=== PATIENT | female | born 1980 | race Caucasian/White ===

== ENCOUNTER 2024-02-05 17:10 | Emergency (ER) | payer OTHER, SELFPAY ==
[2024-02-05 17:21] VITALS: BP 135/99
--- NOTE | 2024-02-05 17:43 | ED.GENMED ---
History of Present Illness
General
Chief Complaint: Chest Pain
Time Seen by Provider: 02/05/24 17:43
History of Present Illness
History of Present Illness:
TIME OF INITIAL ENCOUNTER: 5:45 PM
HPI: The patient had abrupt onset stabbing central chest discomfort as she points to the lower chest and a small region. There is some questionable shortness of breath as well. She was doing a medicine ball workout earlier today when the symptoms
started. No cough or fevers.
EXAM:
GENERAL: Well appearing in no distress
HEENT: Moist oral mucosa
CARDIOVASCULAR: No murmurs, normal heart rate, regular rhythm, moderate chest wall tenderness to the left sternal border
PULMONARY: No respiratory distress, breath sounds are clear and equal
ABDOMEN: Soft with no peritoneal signs, no tenderness
NEUROLOGIC: Excellent strength all extremities, no coordination deficits
PSYCHIATRIC: Appropriate mental status, normal insight and judgement
EXTREMITIES: Nontender, no edema, moves all extremities equally
SKIN: No rash, no lesions
NUMBER AND COMPLEXITY OF PROBLEMS ADDRESSED AT THE ENCOUNTER
� Chronic conditions affecting care: No significant past medical history
� Acute Exacerbation and/or Progression of Chronic Illness: This is an acute problem
� Differential Diagnosis includes:costochondritis, chest wall pain, PE and ACS very unlikely
AMOUNT AND/OR COMPLEXITY OF DATA TO BE REVIEWED AND ANALYZED
� I performed an independent evaluation of and my interpretation is:
EKG: Sinus 89, septal Q waves with no old EKG to compare, no acute ST abnormality
CT:
X-rays: Chest x-ray negative
Laboratory Studies: CBC, chemistries normal, hCG negative, initial troponin negative, D-dimer low
Other:
� Review of other/old records: No old records available for review
� Clinical information was obtained by an independent historian: I spoke to the at bedside
� Prescriptions/Medications Considered but not given:
� Further testing considered but not performed:
RISK OF COMPLICATIONS AND/OR MORBIDITY OR MORTALITY OF PATIENT MANAGEMENT
� Social determinants of health affecting care: Lives at home
� Discussion with other providers: None needed
� Escalation of care including admission/observation vs risk of discharge considered: Labs including troponins and D-dimer unremarkable. Chest x-ray also unremarkable.
ANY OTHER UPDATES:
7:30 PM�no further pain after Toradol was given. Favor more likely costochondritis.
Phy Exam
Physical Exam
Physical Exam:
See HPI
Scores
Heart Score for Chest Pain Patients
STEMI patient?: No
History: Slightly or Non-Suspicious
ECG: Normal
Age: </= 45 years
Risk Factors: No Risk Factors
Troponin: </= Normal Limit
Heart Score for Chest Pain Patients: 0
Heart Score Risk: 2.5% MACE over next 6 weeks
Course
Orders/Labs/Results
Orders:
Orders
02/05/24 17:11
Electrocardiogram (*1) Urgent
Reason for Study: Chest Pain
EKG- Treatment ONCE
02/05/24 17:14
Test Result ONCE
02/05/24 17:50
Ketorolac [Toradol] 15 mg IV NOW STA
02/05/24 17:57
Complete Blood Count/With Diff Urgent
Comprehensive Metabolic Panel Urgent
D-Dimer Urgent
HCG, Serum Qualitative Screen Urgent
Troponin I Urgent
02/05/24 18:38
CR Chest - 2 Views Urgent
Comment:
Reason For Exam: cp
02/05/24 19:24
Troponin I Urgent
Abnormal Lab Results
02/05/24
17:57
Hct 36.2 L %
(37.0-47.0)
Glucose 103 H mg/dl
(70-99)
AST 38 H U/L
(14-36)
02/05/24 17:57
02/05/24 17:57
Vital Signs
Initial and Last Documented VS:
Initial Vital Signs
Temp Pulse Resp BP Pulse Ox
97.9 F 103 16 135/99 100
02/05/24 17:21 02/05/24 17:21 02/05/24 17:21 02/05/24 17:21 02/05/24 17:21
Last Documented Vital Signs
Temp Pulse Resp BP Pulse Ox
97.9 F 90 18 102/89 99
02/05/24 17:21 02/05/24 19:00 02/05/24 19:00 02/05/24 19:00 02/05/24 19:00
*Critical Care Note
Total Time (30-74mins, 75-104mins- exclusive of procedures): Not Applicable
ED Attending Note
-
Portions of this chart may have been created with voice recognition software.� Occasional wrong word or��sound alike� substitutions may have occurred due to the inherent limitations of voice recognition software.
Discharge Plan
Departure
Patient Disposition: Home (Routine Discharge)
Date of Disposition: 02/05/24
Time of Disposition: 20:03
Patient with high blood pressure during this ER visit?: Yes
Discharge Problem:
Acute costochondritis
Instructions: Chest Pain DCA Follow Up
Referrals:
NONE,* [Family Provider] -
Activity Restrictions/Additional Instructions:
Please follow-up with your primary care doctor. I recommend 3-4 [id number] ibuprofen (Motrin) every 8 hours with food for a few days. Return here if worse.
Interventions
Interventions:
*Risk Screen - Suicide Last Done: 02/05/24 17:21
*General Assessment Last Done: 02/05/24 17:21
*Neglect/Abuse Screening Last Done: 02/05/24 17:21
ED- Fall Risk Assessment Last Done: 02/05/24 17:48
*ED COVID-19 Vaccine History Last Done: 02/05/24 17:21
ED- Cardiac Assessment Last Done: 02/05/24 17:48
Discharge Date and Time
Print Language: YI
[2024-02-05 17:44] VITALS: BMI 27.2
[2024-02-05 18:00] VITALS: BP 108/83
[2024-02-05 18:04] LABS: % Eosinophils 2.3 % (0-6); % Immature Granulocytes 0.4 % (0-0.5); % Monocytes 8.7 % (1.7-9.3); % Neutrophils 54.6 % (42.2-75.2); Absolute Basophils 0.1 10^3/uL (0-0.2); Absolute Eosinophils 0.1 10^3/uL (0-0.7); Absolute Lymphocytes 1.7 10^3/uL (1.2-3.4); Absolute Monocytes 0.5 10^3/uL (0.1-0.6); Absolute Neutrophils 2.8 10^3/uL (1.4-6.5); Hematocrit 36.2 % (37.0-47.0); Hemoglobin 12.6 g/dL (12.0-16.0); Mean Corp Hgb Conc. 34.8 g/dL (33.0-37.0); Mean Corpuscular Hgb 29.8 pg (27.0-31.0); Mean Corpuscular Volume 85.6 fL (81.0-99.0); Mean Platelet Volume 9.4 fL (7.4-10.4); Nucleated Red Blood Cells % 0 %; Platelet Count 346 10^3/uL (130-400); Red Blood Cell Count 4.23 10^6/uL (4.20-5.40); White Blood Cell Count 5.2 10^3/uL (4.8-10.8)
[2024-02-05] MEDS: TORADOL 15 MG IV (18:08)
[2024-02-05 18:23] LABS: D-Dimer < 0.27 ug/mlFEU (0.00-0.50); HCG, Serum Qualitative Screen Negative
[2024-02-05 18:27] LABS: ALT (SGPT) 19 U/L (0-35); AST (SGOT) 38 U/L (14-36); Albumin 4.7 g/dl (3.5-5.0); Alkaline Phosphatase 63 U/L (38-126); Blood Urea Nitrogen 12 mg/dl (7-17); Calcium 9.5 mg/dl (8.4-10.2); Carbon Dioxide 26 mmol/L (22-30); Chloride 101 mmol/L (98-107); Estimated Creatinine Clearance 90 ml/min; Glucose 103 mg/dl (70-99); Potassium 4.7 mmol/L (3.5-5.1); Sodium 141 mmol/L (135-145); Total Bilirubin 0.2 mg/dl (0.2-1.3); Total Protein 7.4 g/dl (6.3-8.2); eGFR > 60.00
[2024-02-05 18:38] LABS: Troponin I < 0.012 ng/ml
[2024-02-05 19:00] VITALS: BP 102/89
[2024-02-05 19:58] LABS: Troponin I < 0.012 ng/ml
== END 2024-02-05 21:36 | disposition home or self-care (01) ==
LOC: EMR 17:10
PROVIDERS: Student in an Organized Health Care Education/Training Program; EMERGENCY PHYSICIAN Emergency Medicine
DX: M94.0 Chondrocostal junction syndrome [Tietze] (principal); R03.0 Elevated blood-pressure reading, without diagnosis of hypertension
CPT/HCPCS: 99285; 96374; 71046; 80053; 84484; 84703; 85025; 85379; 93005